=== PATIENT | female | born 1985 | race Caucasian/White ===

== ENCOUNTER 2017-02-18 18:13 | Emergency (ER) | payer BC ==
[2017-02-18 18:34] VITALS: BP 125/75; PULSE 74; TEMP 98.1; BMI 25.1
--- NOTE | 2017-02-18 18:35 | PDOC ---
History of Present Illness - General Chief Complaint: Pain Stated Complaint: ABDOMINAL PAIN Time Seen by Provider: 02/18/17 18:26 Exam Limitations: No Limitations - History of Present Illness Initial Comments: 02/18/17 20:45 Patient is a 31 y.o. female with a PMH of asymptomatic ovarian cyst and bariatric surgery who presented today complaining of a 1 day h/o of RLQ abdominal pain. Patient states the pain is intermittent (5-7 seconds) cramping like pain. Patient notes she is currently menstruating and is sexually active with one partner and has a Mirena IUD implanted since September 2016. Timing/Duration: reports: getting worse Quality: reports: aching, cramping, stabbing Abdominal Pain Onset Location: reports: RLQ Pain Radiation: reports: no radiation, flank Activities at Onset: reports: none Treatment Prior to Arrive: improves with: analgesics Aggravating Factors: improves with: None Past History - Past Medical History Allergies/Adverse Reactions: Allergies Allergy/AdvReac Type Severity Reaction Status Date / Time No Known Allergies Allergy Verified 02/18/17 18:17 Home Medications: Ambulatory Orders Bupropion HCl [Wellbutrin Xl -] 150 mg PO DAILY 02/18/17 Multivitamin [Poly-Vitamin] 1 each PO DAILY 02/18/17 Oxycodone HCl/Acetaminophen [Percocet 10-325 mg Tablet] 1 each PO PRN PRN #2 tablet MDD 2 02/18/17 Sertraline HCl [Zoloft] 25 mg PO DAILY 02/18/17 Other medical history: rt ovarian cyst - Surgical History Abdominal Surgery: Yes Cholecystectomy: Yes - Reproductive History Is Patient Now?: No - Psycho/Social/Smoking Cessation Hx Anxiety: No Suicidal Ideation: No Smoking History: Never smoked Have you smoked in the past 12 months: No Information on smoking cessation initiated: No Hx Alcohol Use: No Drug/Substance Use Hx: No Substance Use Type: None Review of Systems - Review of Systems ABD/GI: Yes: Abdominal cramping : Yes: Pain All Other Systems: Reviewed and Negative *Physical Exam - Vital Signs Last Vital Signs Temp Pulse Resp BP Pulse Ox 98.1 F 74 18 125/75 100 02/18/17 18:18 02/18/17 18:18 02/18/17 18:18 02/18/17 18:18 07/09/17 18:18 - Physical Exam General Appearance: Yes: Nourished, Appropriately Dressed HEENT: positive: EOMI, CRYS Neck: positive: Tender, Supple Respiratory/Chest: positive: Lungs Clear, Normal Breath Sounds Cardiovascular: positive: Regular Rhythm, Regular Rate, S1, S2 Gastrointestinal/Abdominal: positive: Tender, Tenderness Musculoskeletal: positive: CVA Tenderness Integumentary: positive: Normal Color, Dry, Warm Neurologic: positive: Fully Oriented, Alert Medical Decision Making - Medical Decision Making 02/18/17 21:11 At presentation patient was hemodynamically stable UA, and Pelvic ultrasound were ordered to rule out ovarian cyst or torsion. U/S showed 2 right sided pelvic cysts. As patient did have positive CVA tenderness on PE, Renal U/S (no nephrolithiasis) and UA (negative for hematuria) were ordered to rule out nephrolithiasis. Patient was discharged with Percocet and instruction to follow -up with a road cleaner this week. *DC/Admit/Observation/Transfer Diagnosis at time of Disposition: Right lower quadrant abdominal pain - Discharge Dispostion Disposition: HOME Condition at time of disposition: Improved - Prescriptions Prescriptions: Oxycodone HCl/Acetaminophen [Percocet 10-325 mg Tablet] 1 each PO PRN PRN #2 tablet MDD 2 PRN Reason: Pain - Patient Instructions Printed Discharge Instructions: DI for Abdominal Pain-Adult - Attestations Physician Attestion: 02/18/17 21:47 I, Dr. Nery Madrigal, attest that this document has been prepared under my direction and personally reviewed by me in its entirety. I further attest, that it accurately reflects all work, treatment, procedures and medical decision -making performed by me.
[2017-02-18] MEDS ORDERED: KETOROLAC TROMETHAMINE 30 MG/1 ML VIAL ONE (18:55)
--- NOTE | 2017-02-18 18:55 | PDOC ---
Attending Attestation - Resident Resident Name: Nery Madrigal - HPI HPI: 02/18/17 18:45 31 yo female with PMH of 8 cm rt ovarian cyst now p/w rt adenxal pain 0currently menstruating but the pain is unilateral instead of b/l pain which usually occurs during her period. PSH bariatric surgery 2006 PMH denies ROS no fever,no chills, no vomiting but did feel nauseated - Physicial Exam PE: 02/18/17 18:55 lungs cta b/l cvr [id number] abd soft,nontender rt adnexal pain neuro axox3,ambulatory - Medical Decision Making 02/18/17 18:56 31 yo with rt adnexal pain during menstrual cycle. Has IUD. Diff diag included ruptureD OVARIAN cyst,torsion 02/19/17 01:21
[2017-02-18] MEDS ORDERED: KETOROLAC TROMETHAMINE 30 MG/1 ML VIAL IVPUSH ONE (19:40)
[2017-02-18] MEDS ORDERED: OXYCODONE/APAP 5/325MG COMBO TABLET PO ONE (20:14)
[2017-02-18] MEDS ORDERED: OXYCODONE/APAP 5/325MG COMBO TABLET ONE (20:15)
[2017-02-18 20:26] LABS: URINE APPEARANCE CLEAR; URINE BILIRUBIN NEGATIVE (NEGATIVE); URINE BLOOD NEGATIVE (NEGATIVE); URINE COLOR AMBER; URINE GLUCOSE (UA) NEGATIVE (NEGATIVE); URINE KETONE TRACE (NEGATIVE); URINE LEUK ESTERASE NEGATIVE (NEGATIVE); URINE NITRITE NEGATIVE (NEGATIVE); URINE PROTEIN NEGATIVE (NEGATIVE); URINE UROBILINOGEN 2.0 E.U/dl E.U./dl (0.2-1.0)
== END 2017-02-18 22:04 | disposition home or self-care (01) ==
LOC: JER 18:13
PROC: 3E0333Z Introduction of Anti-inflammatory into Peripheral Vein, Percutaneous Approach (ICD-10-PCS; principal; 2017-02-18)
DX: R10.31 Right lower quadrant pain (principal); N83.201 Unspecified ovarian cyst, right side
CPT/HCPCS: 76775-TC; 76830-TC; 81003; 84703; 99283-25

== ENCOUNTER 2017-08-25 10:13 | Emergency (ER) | payer BC ==
[2017-08-25 10:18] VITALS: BP 133/33; PULSE 79; TEMP 98.9; BMI 23.7
[2017-08-25 11:12] LABS: URINE APPEARANCE CLEAR; URINE BILIRUBIN NEGATIVE (NEGATIVE); URINE BLOOD NEGATIVE (NEGATIVE); URINE COLOR COLORLESS; URINE GLUCOSE (UA) NEGATIVE (NEGATIVE); URINE KETONE NEGATIVE (NEGATIVE); URINE LEUK ESTERASE NEGATIVE (NEGATIVE); URINE NITRITE NEGATIVE (NEGATIVE); URINE PROTEIN NEGATIVE (NEGATIVE); URINE UROBILINOGEN NEGATIVE mg/dL (0.2-1.0)
[2017-08-25 11:22] LABS: HCG,QUALITATIVE URINE NEGATIVE
--- NOTE | 2017-08-25 11:26 | PDOC ---
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 No nausea vomiting or diarrhea. No urinary symptoms. No chest pain or shortness of breath.] Past Medical History: [Denies]. Allergies: No known allergies Medications: [None] Family History: Non-contributory Social History: Denies smoking, alcohol use, or IVDU Vital signs on arrival are [notable for pulse of 79.] Review of Systems GENERAL/CONSTITUTIONAL: [Tactile, fever, chills, body aches. No weakness. No weight change.] HEAD, EYES, EARS, NOSE AND THROAT: [No change in vision. No ear pain or discharge. No sore throat. ] CARDIOVASCULAR: [No chest pain or shortness of breath.] RESPIRATORY: [No cough, wheezing, or hemoptysis.] GASTROINTESTINAL: [No nausea, vomiting, diarrhea or constipation. No rectal bleeding.] GENITOURINARY: [No dysuria, frequency, or change in urination.] MUSCULOSKELETAL: [No joint or muscle swelling or pain. No neck or back pain.] SKIN AND BREASTS: [No rash or easy bruising.] NEUROLOGIC: [No headache, vertigo, loss of consciousness, or loss of sensation.] PSYCHIATRIC: [No depression or anxiety.] ENDOCRINE: [No increased thirst. No abnormal weight change.] HEMATOLOGIC/LYMPHATIC: [No anemia, easy bleeding, or history of blood clots.] ALLERGIC/IMMUNOLOGIC: [No hives or skin allergy. No latex allergy.] Physical Exam: GENERAL: [The patient is awake, alert, and fully oriented, in no acute distress. ] HEAD: [Normal with no signs of trauma.] EYES: [Pupils equal, round and reactive to light, extraocular movements intact, sclera anicteric, conjunctiva clear.] ENT: [Ears normal, nares patent, oropharynx clear without exudates. Moist mucous membranes. No uvula deviation] NECK: [Normal range of motion, supple without lymphadenopathy, JVD, or masses.] LUNGS: [Breath sounds equal, clear to auscultation bilaterally. No wheezes, and no crackles.] HEART: [Regular rate and rhythm, normal S1 and S2 without murmur, rub or gallop. ] ABDOMEN: [Soft, nontender, normoactive bowel sounds. No guarding, no rebound. No masses. No bruising or abrasions] RECTAL : [Guaiac negative, normal rectal tone.] MUSCULOSKELETAL: [Normal range of motion, no edema. No clubbing or cyanosis. No cords, erythema, or tenderness. No CVA Tenderness with fist.] NEUROLOGICAL: [Cranial nerves II through XII grossly intact. Normal speech, normal gait.] PSYCH: [Normal mood, normal affect.] SKIN: [Warm, Dry, normal turgor, no rashes or lesions noted.] 08/25/17 11:24 Past History - Past Medical History Allergies/Adverse Reactions: Allergies Allergy/AdvReac Type Severity Reaction Status Date / Time No Known Allergies Allergy Verified 08/25/17 10:18 Home Medications: Ambulatory Orders Bupropion HCl [Wellbutrin Xl -] 150 mg PO DAILY 02/18/17 Multivitamin [Poly-Vitamin] 1 each PO DAILY 02/18/17 Sertraline HCl [Zoloft] 25 mg PO DAILY 02/18/17 Oseltamivir Phosphate [Tamiflu -] 75 mg PO BID #10 capsule 08/25/17 COPD: No - Surgical History Abdominal Surgery: Yes Cholecystectomy: Yes - Suicide/Smoking/Psychosocial Hx Smoking History: Never smoked Have you smoked in the past 12 months: No Hx Alcohol Use: No Drug/Substance Use Hx: No Substance Use Type: None *Physical Exam - Vital Signs Last Vital Signs Temp Pulse Resp BP Pulse Ox 98.9 F 79 20 133/33 97 08/25/17 10:14 08/25/17 10:14 08/25/17 10:14 08/25/17 10:14 08/25/17 10:14 ED Treatment Course - ADDITIONAL ORDERS Additional order review: Laboratory Results 08/25/17 10:35 Urine Color Colorless Urine Appearance Clear Urine pH 6.0 Ur Specific [place]re 1.002 Urine Protein Negative Urine Glucose (UA) Negative Urine Ketones Negative Urine Blood Negative Urine Nitrite Negative Urine Bilirubin Negative Urine Urobilinogen Negative Ur Leukocyte Esterase Negative 08/25/17 10:20 Influenza Types A,B Antigen (RIO) - Preliminary Nasopharyngeal Swab Medical Decision Making - Medical Decision Making 08/25/17 11:24 A/P: Patient with sudden onset of tactile fever, chills, and body aches. Influenza-type illness will send rapid influenza, given urinalysis and urine . 08/25/17 12:27 Laboratory Results - last 24 hr 08/25/17 10:35 Urine Color Colorless Urine Appearance Clear Urine pH 6.0 Ur Specific Sayre 1.002 Urine Protein Negative Urine Glucose (UA) Negative Urine Ketones Negative Urine Blood Negative Urine Nitrite Negative Urine Bilirubin Negative Urine Urobilinogen Negative Ur Leukocyte Esterase Negative Urine HCG, Qual Negative Rapid influenza is negative, patient has been exposed to multiple cases and presentation of current illness will prescribe Tamiflu, increase fluids, Motrin for pain and fever follow-up with PMD in Una days if symptoms persist *DC/Admit/Observation/Transfer Diagnosis at time of Disposition: Exposure to influenza - Discharge Dispostion Disposition: HOME Condition at time of disposition: Good Admit: No - Prescriptions Prescriptions: Oseltamivir Phosphate [Tamiflu -] 75 mg PO BID #10 capsule - Referrals Referrals: Jose Francisco Lugo MD [Primary Care Provider] - - Patient Instructions Additional Instructions: Increase fluids to prevent dehydration Tylenol for headache Motrin for fever greater than 101.0 Please followup with primary care in 3 days if symptoms persist Return to emergency department any increased cough, fever, inability to drink or other concerns - Post Discharge Activity Forms/Work/School Notes: Back to Work
== END 2017-08-25 11:27 | disposition home or self-care (01) ==
LOC: JERFT 10:13
DX: Z20.828 Contact with and (suspected) exposure to other viral communicable diseases (principal)
CPT/HCPCS: 81003; 84703; 87804; 99281-25